=== PATIENT | male | born 1950 | race Caucasian/White ===

== ENCOUNTER → 2017-12-05 | Outpatient (CLI) | payer MEDICARE ==
[~2017-12-05] MED LIST: OMNIPAQUE 350 MG/ML, 100ML BOTTLE ONE
== END | disposition home or self-care (01) ==
LOC: PETCFH 07:53
PROVIDERS: ATTEND Internal Medicine
DX: S22.42XK Multiple fractures of ribs, left side, subsequent encounter for fracture with nonunion (principal); R91.8 Other nonspecific abnormal finding of lung field; J43.9 Emphysema, unspecified; X58.XXXD Exposure to other specified factors, subsequent encounter; C61 Malignant neoplasm of prostate
CPT/HCPCS: 71260; 74177; 78306; A9503; Q9967

== ENCOUNTER → 2018-03-18 | Outpatient (CLI) | payer MEDICARE | END | disposition home or self-care (01) | LOC: CFH 15:32 | PROVIDERS: ATTEND Internal Medicine | DX: I82.402 Acute embolism and thrombosis of unspecified deep veins of left lower extremity (principal); C61 Malignant neoplasm of prostate ==

== ENCOUNTER → 2018-04-14 | Outpatient (CLI) | payer MEDICARE | END | disposition home or self-care (01) | LOC: CFH 09:52 | PROVIDERS: ATTEND Internal Medicine | DX: M85.89 Other specified disorders of bone density and structure, multiple sites (principal); C61 Malignant neoplasm of prostate | CPT/HCPCS: 77080 ==

== ENCOUNTER 2020-03-28 11:18 | Day surgery (SDC) | payer MEDICARE ==
[~2020-03-28] VITALS: Ht 172.7 cm; Wt 99.0 kg
[~2020-03-28 11:18] MED LIST changes: +APIX5TAB PO; +ATOR-2 PO; +DULO30CA44 PO; +GABA300C10 PO; +HYDR25TA6 PO; +HYDR4TAB PO; +LEUP3.75 IJ; +MELA10TA PO; +METO50TA6 PO; +MULT1TAB60 PO; +OMEP20CA20 PO; -OMNIPAQUE 350 MG/ML, 100ML BOTTLE ONE; +OXYC10TA47 PO; +TRAZ-96 PO; +[UNRECOGNIZED DRUG - OTHER] INJ; +calcium PO
[2020-03-28 11:33] VITALS: BP 111/62
[2020-03-28] MEDS ORDERED: LACTATED RINGERS 1,000 ML IV SCH (12:00)
[2020-03-28] MEDS ORDERED: CHLORHEXIDINE 15 ML UDC MM ONE (12:00)
[2020-03-28] MEDS ORDERED: TRIAMCINOLONE ACETONIDE 40 MG/ML, 1ML ONE (12:16)
[2020-03-28] MEDS ORDERED: MIDAZOLAM 1 MG/ML, 2ML ONE (12:57)
[2020-03-28] MEDS ORDERED: FENTANYL PF 250 MCG/5ML ONE (12:58)
[2020-03-28] MEDS ORDERED: SUCCINYLCHOLINE 20 MG/ML, 10ML ONE (12:59)
[2020-03-28] MEDS ORDERED: PROPOFOL 10 MG/ML, 20ML ONE (12:59)
[2020-03-28] MEDS ORDERED: ROCURONIUM 10MG/ML,5ML ONE (12:59)
[2020-03-28] MEDS ORDERED: DEXAMETHASONE 4 MG/ML, 1ML ONE (13:09)
[2020-03-28] MEDS ORDERED: ONDANSETRON 2MG/ML, 2ML ONE (13:09)
[2020-03-28] MEDS ORDERED: PHENYLEPHRINE 10 MG/ML ONE (13:09)
[2020-03-28] MEDS ORDERED: FENTANYL PF 100 MCG/2ML IV PRN (13:30)
[2020-03-28] MEDS ORDERED: EPHEDRINE 50 MG/ML, 1ML IVPush PRN (13:30)
[2020-03-28] MEDS ORDERED: PROMETHAZINE 12.5 MG SUPP PR PRN (13:30)
[2020-03-28] MEDS ORDERED: HYDROmorphone 2 MG/ML, 1ML IVPush PRN (13:30)
[2020-03-28] MEDS ORDERED: OXYcodone 5 MG/5 ML ORAL.SOL UDC PO PRN (13:30)
[2020-03-28] MEDS ORDERED: HALOPERIDOL 5 MG/ML IV PRN (13:30)
[2020-03-28] MEDS ORDERED: ONDANSETRON 2MG/ML, 2ML IV PRN (13:30)
[2020-03-28] MEDS ORDERED: LABETALOL 5MG/ML, 20ML IV PRN (13:30)
[2020-03-28] MEDS ORDERED: hydrALAzine 20 MG/ML, 1ML IV PRN (13:30)
[2020-03-28] MEDS ORDERED: PROMETHAZINE 25 MG/ML, 1ML IV PRN (13:30)
[2020-03-28] MEDS ORDERED: MEPERIDINE/PF 25MG/ML,1ML IVPush PRN (13:30)
[2020-03-28] MEDS ORDERED: ONDANSETRON ODT 8 MG PO PRN (13:30)
[2020-03-28] MEDS ORDERED: ACETAMINOPHEN 325 MG TABLET PO PRN (13:30)
[2020-03-28] MEDS ORDERED: MIDAZOLAM 1 MG/ML, 2ML IV PRN (13:30)
[2020-03-28] MEDS ORDERED: DIAZEPAM 5 MG/ML, 2ML IVPush PRN (13:30)
[2020-03-28] MEDS ORDERED: ALBUTEROL SULFATE 2.5 MG/3 ML NPPB PRN (13:30)
[2020-03-28] MEDS ORDERED: FENTANYL PF 100 MCG/2ML ONE (14:04)
[2020-03-28] MEDS ORDERED: OPIUM/BELLADONNA SUPP.RECT 16.2-30 MG ONE (14:04)
[2020-03-28] MEDS ORDERED: OPIUM/BELLADONNA SUPP.RECT 16.2-30 MG PR PRN (14:30)
== END 2020-03-28 15:50 | disposition home or self-care (01) ==
LOC: OUT 11:18
PROVIDERS: ATTEND Urology
DX: N32.0 Bladder-neck obstruction (principal); N40.1 Benign prostatic hyperplasia with lower urinary tract symptoms; R33.8 Other retention of urine; R35.1 Nocturia; E78.5 Hyperlipidemia, unspecified; Z79.01 Long term (current) use of anticoagulants; Z79.899 Other long term (current) drug therapy; Z88.5 Allergy status to narcotic agent; Z85.46 Personal history of malignant neoplasm of prostate; Z86.718 Personal history of other venous thrombosis and embolism; Z90.79 Acquired absence of other genital organ(s)
CPT/HCPCS: 52640; J0330; J1100; J2250; J2370; J2405; J2704; J3010; J3301; J7120; U0001

== ENCOUNTER → 2020-04-29 | Outpatient (CLI) | payer MEDICARE | END | disposition home or self-care (01) | LOC: CFH 09:29 | PROVIDERS: ATTEND Registered Nurse Registered Nurse First Assistant | DX: M48.061 Spinal stenosis, lumbar region without neurogenic claudication (principal); M25.78 Osteophyte, vertebrae; M41.86 Other forms of scoliosis, lumbar region | CPT/HCPCS: 72131 ==

== ENCOUNTER → 2020-09-26 | Outpatient (CLI) | payer MEDICARE ==
[~2020-09-26] MED LIST changes: +MULT-449 PO; -MULT1TAB60 PO
[2020-09-26 11:10] LABS: BASOPHILS % (AUTO) 1 % (0-1); EOSINOPHILS % (AUTO) 0 % (1-7); LYMPHOCYTES % (AUTO) 23 % (22-44); MEAN CORPUSCULAR HEMOGLOBIN 24.3 pg (27.5-34.5); MEAN CORPUSCULAR HGB CONC 32.2 g/dL (33.2-36.2); MEAN PLATELET VOLUME 7.9 fL (7.4-10.4); MONOCYTES % (AUTO) 9 % (2-9); NEUTROPHILS % (AUTO) 66 % (42-75); PLATELET COUNT 475 x10^3/uL (130-400); RED BLOOD COUNT 5.83 x10^6/uL (4.38-5.82)
[2020-09-26 11:11] LABS: ANION GAP 17 mmol/L (5-15); CALCIUM 10.3 mg/dL (8.5-10.1); CHLORIDE 100 mmol/L (98-107); CREATININE 1.97 mg/dL (0.7-1.3); INTERNATIONAL NORMALIZED RATIO 1.04 (0.93-1.1)
[2020-09-26 11:23] LABS: MICROSCOPIC INDICATED
[2020-09-26 11:42] LABS: MD SCAN
== END | disposition home or self-care (01) ==
LOC: RAD 10:35
PROVIDERS: ATTEND Anesthesiology
DX: Z01.89 Encounter for other specified special examinations (principal); I48.91 Unspecified atrial fibrillation
CPT/HCPCS: 36415; 71046; 80048; 81001; 85025; 85610; 85730; 87086; 93005

== ENCOUNTER → 2020-12-21 | Outpatient (CLI) | payer MEDICARE | END | disposition home or self-care (01) | LOC: CFH 10:27 | PROVIDERS: ATTEND Family Medicine | DX: Z12.2 Encounter for screening for malignant neoplasm of respiratory organs (principal); R91.1 Solitary pulmonary nodule; Z87.891 Personal history of nicotine dependence | CPT/HCPCS: 71271 ==